=== PATIENT | female | born 1980 | race Caucasian/White ===

== ENCOUNTER 2020-10-27 10:54 | Outpatient (CLI) | payer OTHER, SELFPAY ==
--- NOTE | ~2020-10-27 | US_ITS ---
EXAMINATION: US thyroid DATE: 10/27/2020 11:12 INDICATION: Malignant neoplasm of thyroid gland. TECHNIQUE: Multiple ultrasound images of the thyroid were obtained. COMPARISON: None. FINDINGS: There are changes of thyroidectomy. There is no abnormal tissue in the thyroidectomy bed. IMPRESSION: 1. Thyroidectomy. No abnormal tissue in the thyroidectomy bed. Reviewed, dictated and finalized at location B. [employer]GER
== END 2020-10-27 10:55 | disposition home or self-care (01) ==
LOC: ANHIMG 10:58
PROVIDERS: PCP Physician Assistant; Visit Provider Internal Medicine Endocrinology, Diabetes & Metabolism
DX: C73 Malignant neoplasm of thyroid gland (principal)
CPT/HCPCS: 76536

== ENCOUNTER 2020-11-08 01:53 | Outpatient (CLI) | payer OTHER, SELFPAY ==
[2020-11-08 18:58] LABS: SARS-CoV-2 RNA PCR Negative
== END 2020-11-08 01:54 | disposition home or self-care (01) ==
LOC: ANHCOVIDDT 01:53
PROVIDERS: PCP Physician Assistant; Visit Provider Plastic Surgery
DX: Z01.818 Encounter for other preprocedural examination (principal); Z20.828 Contact with and (suspected) exposure to other viral communicable diseases
CPT/HCPCS: 87635; C9803; U0003

== ENCOUNTER 2020-11-12 00:51 | Day surgery (SDC) | payer OTHER, SELFPAY ==
[2020-11-06 11:12] VITALS: BMI 29.9
--- NOTE | 2020-11-11 14:48 | WPDANESEPPF ---
Anes - Initial Pre Proc Eval Procedure: Operation Date: 11/12/20 08:30 Proposed Procedures p Excision Of Left Dorsal Wrist Ganglion Cyst - Les Multani MD Date/Time: 11/11/20 14:48 Surgeon: Les Multani MD Pre Op Diagnosis: Left Dorsal Wrist Ganglion Cyst Patient Data Age: 39 Gender: F Height: 1.65 m Weight: 81.81 kg Allergies Allergy/AdvReac Type Severity Reaction Status Date / Time diphenhydramine AdvReac Severe Tachycardia Verified 11/12/20 06:46 Home Medications Medication Instructions Recorded Confirmed Type cholecalciferol (vitamin D3) 1,250 50,000 unit PO WEEKLY #12 cap 09/03/20 11/12/20 Rx mcg (50,000 unit) capsule levothyroxine [Synthroid] 150 mcg PO EVERY OTHER DAY 11/06/20 11/12/20 History levothyroxine [Synthroid] 175 mcg PO EVERY OTHER DAY 11/06/20 11/12/20 History Adult Multivitamin Gummies 1 cap PO DAILY 11/12/20 11/12/20 History omega-3 fatty acids [Fish Oil] 1 cap PO DAILY 11/12/20 11/12/20 History Patient hx anesthesia problems: none Family hx anesthesia problems: none PMFSH Past Medical History Medical History Arthritis History of plasmapheresis Thyroid cancer Thyroid disease Surgical History Surgical History H/O thyroidectomy Status post PICC central line placement Family History Family History (Updated 10/15/20 @ 10:55 by Constantin Loo) Father Family history of obesity Patient's father is in good health Family history of kidney stones Malignant neoplasm of prostate Mother Family history of mental disorder Patient's mother is in good health Grandparent Family history of malignant neoplasm of breast Sibling Family history of malignant neoplasm of thyroid Other Anxiety Hearing loss Social History Social History Smoking packs per day: 0.5 Smoking cigarettes per day: 10.0 Years smoked: 3 Smoking pack-years: 1.50 Smoking status: Former smoker Tobacco type: cigarettes Second hand tobacco smoke exposure: No Additional smoking assessment comments: STATES QUIT 2004 Alcohol intake: current Drinks per week: 2 Substance use: never Substance use type: does not use Living arrangements: with family Spiritual care concerns: No Anes - Eval Final PreProcedure Day of Procedure 11/11/20 14:48 Patient weight: obese Heart: regular rate and rhythm Lungs: clear to auscultation and normal air movement Airway: Mallampati scale class II Neurological: alert and oriented Last oral intake: >/= 8 hours ASA classification: II Emergent: no Anesthetic plan: proceed Anesthesia type and monitoring: general GIVS and standard monitoring Informed Consent: The patient's anesthetic plan and its attendant risks and benefits were discussed with the patient/family/POA. Questions were solicited and answers provided to the satisfaction of the patient/family/POA.
[2020-11-12 06:29] VITALS: BP 132/68; PULSE 88; RESP 16; TEMP 36.7; O2SAT 100
[2020-11-12] MEDS: LACTATED RINGERS 1,000 ML 30 ML IV CONT (06:57)
--- NOTE | 2020-11-12 07:07 | WPDHPUPDATE1 ---
History and Physical Update Update Date/Time: 11/12/20 07:07 History and Physical has been reviewed, including an updated exam of the patient. There are NO changes in the patient's condition. Risks, benefits, and alternatives have been discussed and questions answered. Patient agrees to proceed with procedure.
[2020-11-12] MEDS: LIDO 1%/EPINEPHRINE 1:100,000 20 ML VIAL 5 ML INFILTRATE (08:50)
[2020-11-12] MEDS: BACITRACIN OINTMENT 15 GM TUBE 1 APPLIC TOPICAL (08:51)
[2020-11-12 09:11] VITALS: BP 112/51; PULSE 96; RESP 14; O2SAT 100
--- NOTE | 2020-11-12 09:16 | PM.PROC ---
Procedure Note - Detailed Date of procedure: 11/12/20 Pre-op diagnosis: Left Dorsal Wrist Ganglion Cyst Post-op diagnosis: same Procedure performed: Excision left dorsal wrist ganglion cyst. Anesthesia: MAC Surgeon: Les Multani MD Estimated blood loss (mL): 0 Tourniquet time (min): 7 Drains: No Packing: No Pathology: none sent Complications: No immediate complications Condition: stable Disposition: same day
--- NOTE | 2020-11-12 09:20 | PM.PROC ---
Procedure Note - Detailed Date of procedure: 11/12/20 Pre-op diagnosis: Left Dorsal Wrist Ganglion Cyst Post-op diagnosis: same Procedure performed: Excision of left dorsal wrist ganglion cyst Description of procedure: The site on the left dorsal wrist was marked in preop. The patient was taken to the operating room where she was placed supine on the operating table. A time-out was held and confirmed. She was given IV sedation. The left extremity was prepped and draped in usual fashion. The site was remarked over the ganglion cyst which was visible. This was locally infiltrated with 1% lidocaine with epinephrine. The tourniquet was inflated to 250 mmHg. The incision was made transversely as marked. Blunt dissection through the subcutaneous fat revealed the ganglion cyst. This was relatively superficial. It was dissected around its base with and the base was tracked down to the origin at the wrist capsule. The trunk did not appear to have a lumen today. It was amputated. The local capsular tissue was easily approximated with a single suture of 4-0 Monocryl. The subcutaneous tissue was closed with 4-0 Monocryl and the dermis was closed with 4-0 Monocryl. The tourniquet was released in the usual bandage applied. She is being discharged home with instructions in wound care and follow-up. A prescription for hydrocodone 5/325 was printed for her discharge Surgeon: Les Multani MD
[2020-11-12 09:40] VITALS: BP 108/72; PULSE 80; RESP 14
== END 2020-11-12 10:00 | disposition home or self-care (01) ==
PROVIDERS: PCP Physician Assistant; Visit Provider Plastic Surgery
PROC: (CPT 25111; principal; 2020-11-12 08:30)
DX: M67.432 Ganglion, left wrist (principal); E89.0 Postprocedural hypothyroidism; M19.90 Unspecified osteoarthritis, unspecified site; Z85.850 Personal history of malignant neoplasm of thyroid; Z90.89 Acquired absence of other organs; Z87.891 Personal history of nicotine dependence; E66.8 Other obesity; Z68.31 Body mass index [BMI] 31.0-31.9, adult
CPT/HCPCS: 25111; A9270; J2250; J2704; J3010; J7120

== ENCOUNTER 2021-01-20 16:57 | Outpatient (CLI) | payer OTHER, SELFPAY ==
--- NOTE | ~2021-01-20 | MM_ITS ---
EXAMINATION: MM screening marva BI w greta HISTORY: Screening TECHNIQUE: Craniocaudal and mediolateral oblique 3-D tomosynthesis images were obtained and synthetic 2-D images were generated. CAD analysis was submitted and interpreted. COMPARISON: No prior mammogram is available for comparison at this institution. BREAST PARENCHYMAL COMPOSITION: Breast composed of scattered areas of fibroglandular density. FINDINGS: There are asymmetries of the right breast centered in the upper outer quadrant. There are n o suspicious masses, calcifications or architectural distortion in the left breast. IMPRESSION: 1. Right breast asymmetries centered in the upper outer quadrant. 2. Comparison to previous outside mammograms recommended. BI-RADS Category 0: Incomplete: Needs additional imaging evaluation. Reviewed, dictated and finalized at location A. [employer]PER[employer]
== END 2021-01-20 16:58 | disposition home or self-care (01) ==
LOC: ANHIMG 16:59
PROVIDERS: PCP Physician Assistant; Visit Provider Physician Assistant
DX: Z12.31 Encounter for screening mammogram for malignant neoplasm of breast (principal); R92.8 Other abnormal and inconclusive findings on diagnostic imaging of breast
CPT/HCPCS: 77063; 77067

== ENCOUNTER 2021-03-06 10:58 | Outpatient (CLI) | payer OTHER, SELFPAY ==
--- NOTE | ~2021-03-06 | MMUS_ITS ---
EXAMINATION: MM diagnostic mammo unilat RT, US breast RT limited HISTORY: Follow-up right breast asymmetry TECHNIQUE: Additional 3-D tomosynthesis images of the right breast were performed and synthetic 2-D i mages were generated. CAD analysis was submitted and interpreted. High resolution Limited right breas t ultrasound was performed. COMPARISON: 01/20/2021 BREAST PARENCHYMAL COMPOSITION: The breasts are heterogenously dense, which may obscure small masses. FINDINGS: MAMMOGRAPHIC FINDINGS: There are no suspicious masses, calcifications or architectural distortion in the right breast to sug gest malignancy. ULTRASOUND: Limited right breast ultrasound: Normal heterogeneous echotexture without focal solid or cystic mass. IMPRESSION: 1. No mammographic or sonographic evidence for malignancy in the right breast. 2. Routine yearly screening mammogram and regular clinical breast examination are recommended. BI-RADS Category 1: Negative Reviewed, dictated and finalized at location A. IMPRESSION: 1. No mammographic or sonographic evidence for malignancy in the right breast. 2. Routine yearly screening mammogram and regular clinical breast examination a re recommended. BI-RADS Category 1: Negative
== END 2021-03-06 10:59 | disposition home or self-care (01) ==
LOC: ANHIMG 10:58
PROVIDERS: PCP Physician Assistant; Visit Provider Physician Assistant
DX: R92.8 Other abnormal and inconclusive findings on diagnostic imaging of breast (principal)
CPT/HCPCS: 76642; 77065

== ENCOUNTER 2021-03-09 10:04 | Outpatient (CLI) | payer OTHER, SELFPAY | END 2021-03-09 10:05 | disposition home or self-care (01) | LOC: ANHCOVIDVC 10:04 | PROVIDERS: PCP Physician Assistant | DX: Z23 Encounter for immunization (principal) | CPT/HCPCS: 0001A; 91300 ==

== ENCOUNTER 2021-03-30 09:55 | Outpatient (CLI) | payer OTHER, SELFPAY | END 2021-03-30 09:56 | disposition home or self-care (01) | LOC: ANHCOVIDVC 09:55 | PROVIDERS: PCP Physician Assistant | DX: Z23 Encounter for immunization (principal) | CPT/HCPCS: 0002A; 91300 ==

== ENCOUNTER → 2021-08-13 08:42 | Outpatient (CLI) | payer OTHER, SELFPAY ==
[2021-08-13 17:06] LABS: SARS-CoV-2 RNA PCR Negative
== END ==
PROVIDERS: PCP Physician Assistant; Visit Provider Physician Assistant
DX: R68.89 Other general symptoms and signs (principal); Z20.822 Contact with and (suspected) exposure to COVID-19
CPT/HCPCS: C9803; U0003; U0005

== ENCOUNTER 2022-02-09 08:28 | Outpatient (CLI) | payer OTHER, SELFPAY ==
--- NOTE | ~2022-02-09 | MM_ITS ---
EXAMINATION: MM screening marva BI w greta HISTORY: Screening mammogram TECHNIQUE: Craniocaudal and mediolateral oblique 3-D tomosynthesis images were obtained and synthetic 2-D images were generated. CAD analysis was submitted and interpreted. COMPARISON: 03/06/2021 diagnostic right mammogram and limited right breast ultrasound 01/20/2021 bilateral screening mammogram BREAST PARENCHYMAL COMPOSITION: The breasts are heterogeneously dense, which may obscure small masses . FINDINGS: Right breast: There is focal asymmetry in the upper outer quadrant of the right breast. Shanti gnostic right mammogram is recommended, with ultrasound if required. Left breast: There is no evidence of suspicious mass, calcification, or architectural distortion to s uggest malignancy.. There has been no suspicious interval change. IMPRESSION: 1. Mild asymmetry, upper outer right breast 2. Diagnostic right mammogram is recommended, with ultrasound if required BI-RADS Category 0: Incomplete: Needs additional imaging evaluation. Reviewed, dictated and finalized at location A.
== END 2022-02-09 08:29 | disposition home or self-care (01) ==
LOC: ANHIMG 08:30
PROVIDERS: PCP Physician Assistant; Visit Provider Physician Assistant
DX: Z12.31 Encounter for screening mammogram for malignant neoplasm of breast (principal); R92.8 Other abnormal and inconclusive findings on diagnostic imaging of breast
CPT/HCPCS: 77063; 77067

== ENCOUNTER 2022-02-18 13:15 | Outpatient (CLI) | payer OTHER, SELFPAY ==
--- NOTE | ~2022-02-18 | MM_ITS ---
EXAMINATION: MM diagnostic marva RT w greta HISTORY: Right breast focal asymmetry on screening mammogram TECHNIQUE: Additional 3-D tomosynthesis images of the right breast were performed and synthetic 2-D i mages were generated. CAD analysis was submitted and interpreted. COMPARISON: 02/09/2022, 03/06/2021, 01/20/2021 FINDINGS: There is a return to baseline fibroglandular appearance with spot compression of the right breast in the area questioned on screening mammogram. IMPRESSION: 1. No mammographic evidence of malignancy. 2. Recommend routine screening mammography in one year. BI-RADS Category 1: Negative Reviewed, dictated and finalized at location A.
== END 2022-02-18 13:16 | disposition home or self-care (01) ==
PROVIDERS: PCP Physician Assistant; Visit Provider Physician Assistant
DX: R92.8 Other abnormal and inconclusive findings on diagnostic imaging of breast (principal)
CPT/HCPCS: 77061; 77065; G0279

== ENCOUNTER 2022-05-03 10:41 | Outpatient (CLI) | payer OTHER, SELFPAY ==
--- NOTE | ~2022-05-03 | US_ITS ---
EXAMINATION: US pelvic complete DATE: 05/03/2022 11:23 INDICATION: ENLARGED UTERUS . Heavy menses. TECHNIQUE: Multiple transabdominal and endovaginal sonographic images of the pelvis were obtained. COMPARISON: None. FINDINGS: Uterus: 12.8 x 9.5 x 7.3 cm. Uterine fibroids at the fundus measuring 5.3 and 6.4 cm. Endometrial com plex measures 0.4 cm. Right Ovary: 2.8 x 2.2 x 3.1 cm. Vascular flow is present. Left Ovary: 1.6 x 2.0 x 1.7 cm. Vascular flow is present. There is no free fluid in the pelvis. IMPRESSION: 1. Fibroid uterus. Reviewed, dictated and finalized at location K. IMPRESSION: 1. Fibroid uterus.
== END 2022-05-03 10:42 | disposition home or self-care (01) ==
PROVIDERS: PCP Physician Assistant; Visit Provider Obstetrics & Gynecology Gynecology
DX: N85.2 Hypertrophy of uterus (principal); D25.9 Leiomyoma of uterus, unspecified
CPT/HCPCS: 76856

== ENCOUNTER 2022-07-19 01:44 | Day surgery (SDC) | payer OTHER, SELFPAY ==
--- NOTE | 2022-07-12 16:06 | SUR.PREOP ---
Report to the Outpatient Waiting Room, entrance under the green pavilion located off [facility], at time 0600 on date 07/19/22. OR Time: 0730. - You and your visitor will be asked to self-screen and do not enter if you have any COVID symptoms. - Only one visitor and NO children visitors are allowed at this time. - The patient visitor is requested to leave or wait in car when not with patient due to restrictions. - A mask is required within the hospital. Patients may have clear liquids (water, carbonated beverages, clear teas, apple juice) until 3 hours prior to surgery with a maximum of 20 ounces. - No food from midnight until time of surgery - Infants may have breast milk until 4 hours before surgery, infant formula 6 hours prior to surgery. - Children will be allowed to drink immediately following surgery. If applicable, please bring a bottle or sippy cup to assist with drinking. Juice, water, soda, and popsicles are readily available. For infants on formula, please bring formula the day of surgery. Pacifiers are allowed. Take the following medications with a SIP of water the morning of surgery: SYNTHROID Please no make-up, nail mexican, hairspray, perfume, deodorant, or body powder the day of surgery. No jewelry (including any body piercings) or valuables the day of surgery, leave them at home. Please take a shower or bath the night before, or the morning of, surgery with an antibacterial soap. Wear comfortable, loose fitting clothing. Children are encouraged to wear pajamas. - Jewelry must be removed prior to entering the operating room. Rings and piercings that are not removed may be cut off. - The hospital will not accept responsibility for valuables. - Please leave all valuables, including medications, at home the day of surgery. If you are going home after surgery, a licensed transportation driver must drive you home. - NO public transportation without another adult. - We recommend that an adult stay with you for 24 hours following discharge. - We also recommend that you do not drive, make important decision, drink alcoholic beverages, or take any drugs that were not prescribed by your health care provider for at least 24 hours after your discharge time. For Pediatric surgeries, we recommend two adults accompany the child home (only one inside the building at this time). Follow any additional instructions given to you from your surgeon. If you or anyone in your household have experienced Covid symptoms in the past week, please notify your surgeon or the nurse liaison at the phone number below for possible testing. Telephone instructions given to JEANINE RM and asked if any additional questions and then verbalized understanding. Patient advised to call surgeon office or pre surgery nurse liaison [phone] if any additional questions.
[2022-07-12 16:14] VITALS: BMI 27.5
[2022-07-19 06:30] VITALS: BP 116/73; PULSE 85; RESP 16; TEMP 37.1; O2SAT 100
[2022-07-19] MEDS: LACTATED RINGERS 1,000 ML 30 ML IV CONT (06:30)
[2022-07-19] MEDS: ACETAMINOPHEN 500 MG TABLET 1000 MG PO (06:35)
--- NOTE | 2022-07-19 06:47 | WPDANESEPPF ---
Anes - Initial Pre Proc Eval Procedure: Operation Date: 07/19/22 07:30 Proposed Procedures p Hysteroscopy with Dilation and Curettage with Possible Myosure - Caridad Mcnair MD Date/Time: 07/19/22 06:47 Surgeon: Caridad Mcnair MD Pre Op Diagnosis: Menorrhagia, Fibroids Patient Data Age: 41 Gender: F Height: 1.68 m Weight: 77.3 kg Allergies Allergy/AdvReac Type Severity Reaction Status Date / Time diphenhydramine Allergy Severe Tachycardia Verified 07/12/22 15:58 Home Medications Medication Instructions Recorded Confirmed Type cholecalciferol (vitamin D3) 1,250 50,000 unit PO WEEKLY #12 caps 09/03/20 07/12/22 Rx mcg (50,000 unit) capsule fluticasone propionate 50 2 spray intranasal DAILY #16 grams 02/16/21 07/12/22 Rx mcg/actuation nasal spray,suspension (Flonase Allergy Relief) Synthroid 150 mcg tablet 150 mcg PO EVERY OTHER DAY #90 tabs 03/30/22 07/12/22 Rx (levothyroxine) Synthroid 175 mcg tablet 175 mcg PO EVERY OTHER DAY #90 tabs 03/30/22 07/12/22 Rx (levothyroxine) Patient hx anesthesia problems: none Family hx anesthesia problems: none Results Review: All pre-operative results and documents have been reviewed as part of the pre-operative evaluation. [facility] Past Medical History Medical History Arthritis History of plasmapheresis Thyroid cancer Thyroid disease Surgical History Surgical History H/O thyroidectomy Status post PICC central line placement Family History Family History Father Family history of obesity Patient's father is in good health Family history of kidney stones Malignant neoplasm of prostate Mother Family history of mental disorder Patient's mother is in good health Grandparent Family history of malignant neoplasm of breast Sibling Family history of malignant neoplasm of thyroid Other Anxiety Hearing loss Social History Social History Smoking packs per day: 0.5 Smoking cigarettes per day: 10.0 Years smoked: 3 Smoking pack-years: 1.50 Smoking status: Former smoker Tobacco type: cigarettes Second hand tobacco smoke exposure: No Additional smoking assessment comments: STATES QUIT 2004 Alcohol intake: current Drinks per week: 2 Substance use: never Substance use type: does not use Living arrangements: with family Spiritual care concerns: No Anes - Eval Final PreProcedure Day of Procedure 07/19/22 06:47 Patient weight: overweight Heart: regular rate and rhythm Lungs: clear to auscultation Airway: Mallampati scale class II Neurological: alert and oriented Last oral intake: >/= 8 hours ASA classification: II Emergent: no Anesthetic plan: proceed Anesthesia type and monitoring: general GIVS and standard monitoring Results Review: All pre-operative results and documents have been reviewed as part of the pre-operative evaluation. Informed Consent: The patient's anesthetic plan and its attendant risks and benefits were discussed with the patient/family/POA. Questions were solicited and answers provided to the satisfaction of the patient/family/POA.
--- NOTE | 2022-07-19 07:13 | WPDHPUPDATE1 ---
History and Physical Update Update Date/Time: 07/19/22 07:13 History and Physical has been reviewed, including an updated exam of the patient. There are NO changes in the patient's condition. Risks, benefits, and alternatives have been discussed and questions answered. Patient agrees to proceed with procedure.
--- NOTE | 2022-07-19 07:13 | PM.HPGS ---
History of Present Illness History of Present Illness Consent: Risks, benefits, and alternatives have been discussed and questions answered. Patient agrees to proceed with procedure. Chief complaint: Menorrhagia, Fibroids Narrative: Ashley Timmons is a 41 year old female with heavy but regular cycles. Pelvic ultrasound shows multiple fibroids with an enlarged uterus. It was recommended to proceed with D&C hysteroscopy and possible MyoSure. Risks of infection, bleeding perforation, and fluid imbalance were reviewed. Patient voiced understanding and agrees to proceed. Review of Systems Review of Systems: not repeated day of surgery; patient states no changes in status PMFSH Past Medical History Medical History (Updated 07/19/22 @ 07:18 by Caridad Mcnair MD) Arthritis History of plasmapheresis Hypothyroidism (normal spontaneous vaginal delivery) X3 Thyroid cancer Surgical History Surgical History (Updated 07/19/22 @ 07:17 by Caridad Mcnair MD) H/O thyroidectomy 2006 Status post PICC central line placement 2004 Family History Family History Father Family history of obesity Patient's father is in good health Family history of kidney stones Malignant neoplasm of prostate Mother Family history of mental disorder Patient's mother is in good health Grandparent Family history of malignant neoplasm of breast Sibling Family history of malignant neoplasm of thyroid Other Anxiety Hearing loss Social History Social History Smoking packs per day: 0.5 Smoking cigarettes per day: 10.0 Years smoked: 3 Smoking pack-years: 1.50 Smoking status: Former smoker Tobacco type: cigarettes Second hand tobacco smoke exposure: No Additional smoking assessment comments: STATES QUIT 2004 Alcohol intake: current Drinks per week: 2 Substance use: never Substance use type: does not use Living arrangements: with family Spiritual care concerns: No Meds Home Medications and Allergies Home Medications Medication Instructions Recorded Confirmed Type cholecalciferol (vitamin D3) 1,250 50,000 unit PO WEEKLY #12 caps 09/03/20 07/12/22 Rx mcg (50,000 unit) capsule fluticasone propionate 50 2 spray intranasal DAILY #16 grams 02/16/21 07/12/22 Rx mcg/actuation nasal spray,suspension (Flonase Allergy Relief) Synthroid 150 mcg tablet 150 mcg PO EVERY OTHER DAY #90 tabs 03/30/22 07/12/22 Rx (levothyroxine) Synthroid 175 mcg tablet 175 mcg PO EVERY OTHER DAY #90 tabs 03/30/22 07/12/22 Rx (levothyroxine) Allergies Allergy/AdvReac Type Severity Reaction Status Date / Time diphenhydramine Allergy Severe Tachycardia Verified 07/12/22 15:58 Exam Const: General: healthy appearing and alert Orientation/consciousness: patient oriented x3 GI: GI Palp: Yes Soft to palpation, No Tenderness to palpation present (GI) and No Palpable mass present : External Female Exam: normal external appearance Speculum Exam - Vagina: normal appearance of the vagina and normal vaginal discharge Speculum Exam - Cervix: normal appearance of the cervix Bimanual exam- vagina & uterus: consistency normal and enlarged (12 weeks and globular) Bimanual Exam- Adnexa, other: normal adnexae and No adnexal tenderness Neuro: General: patient oriented x3 Assessment and Plan Assessment and plan (1) Menorrhagia: Code(s): N92.0 - Excessive and frequent menstruation with regular cycle Status: Acute Assessment and Plan: Plan to proceed with D&C hysteroscopy and possible MyoSure (2) Fibroid uterus: Code(s): D25.9 - Leiomyoma of uterus, unspecified Status: Acute
[2022-07-19] MEDS: LIDOCAINE HCL 1% PF 30 ML VIAL INFILTRATE (07:47)
[2022-07-19] MEDS: FERRIC SUBSULFATE 8 ML SOLUTION WITH APPLICATOR TOPICAL (07:50)
--- NOTE | 2022-07-19 07:52 | W.PM.PROC2 ---
Procedure Note - Detailed Date of Procedure 07/19/22 Pre-op Diagnosis Menorrhagia, Fibroids Post-op Diagnosis Same Procedure Performed D&C hysteroscopy with MyoSure Surgeon Caridad Mcnair MD Anesthesia MAC and Local Findings Uterus sounds to 9cm. Grossly appearing normal cavity except for 1 small polyp on the right lateral sidewall. Description of Procedure The patient was taken to the operating room and placed under anesthesia in the dorsal lithotomy position. She was prepped and draped in the usual sterile fashion. The bivalve speculum was placed in the vagina and the cervix grasped on the anterior lip with a tenaculum. The cervix is injected in each quadrant with 1% lidocaine. The uterus is sounded to 9cm and the cervix serially dilated to an 8 Hegar. The diagnostic hysteroscope was placed with the above-stated findings. The MyoSure device is opened and placed and under direct visualization the polyp was excised in its entirety. The device is removed and the sharp curette used to curette the endometrium until a good uterine cry was noted in all areas. All instruments were then removed. The tenaculum site required silver nitrate and Monsel's for hemostasis. Sponge, needle, and instrument counts are correct per the OR staff. The patient is awakened from anesthesia and taken to recovery in stable condition. Estimated Blood Loss 5 Drains No Packing No Pathology Yes (Endometrial shavings and curettings) Complications No immediate complications Condition Stable Disposition PACU
[2022-07-19 07:55] VITALS: BP 95/76; PULSE 98; RESP 15; O2SAT 96
[2022-07-19 08:15] VITALS: BP 97/61; PULSE 92; RESP 20
[2022-07-19 08:45] VITALS: BP 102/68; PULSE 76; RESP 20
[2022-07-19 09:05] VITALS: BP 107/68; PULSE 70; RESP 20
== END 2022-07-19 09:10 | disposition home or self-care (01) ==
PROVIDERS: PCP Physician Assistant; Visit Provider Obstetrics & Gynecology Gynecology
PROC: 0U5B8ZZ Destruction of Endometrium, Via Natural or Artificial Opening Endoscopic (ICD-10-PCS; CPT 58563; principal; 2022-07-19 07:30)
DX: N92.0 Excessive and frequent menstruation with regular cycle (principal); N84.0 Polyp of corpus uteri; M19.90 Unspecified osteoarthritis, unspecified site; E03.9 Hypothyroidism, unspecified; Z85.850 Personal history of malignant neoplasm of thyroid; Z87.891 Personal history of nicotine dependence
CPT/HCPCS: 58558; 88305; A9270; J2250; J2704; J3010; J7120

== ENCOUNTER 2022-09-09 11:23 | Outpatient (CLI) | payer OTHER, SELFPAY ==
[2022-09-09 11:53] LABS: Hematocrit 38.5 % (37.0-47.0); Hemoglobin 12.8 g/dL (12.0-15.0)
== END 2022-09-09 11:24 | disposition home or self-care (01) ==
LOC: ANHSURGERY 11:28
PROVIDERS: Anesthesiology; PCP Physician Assistant; Visit Provider Obstetrics & Gynecology Gynecology
DX: D64.9 Anemia, unspecified (principal); Z01.818 Encounter for other preprocedural examination
CPT/HCPCS: 36415; 85014; 85018

== ENCOUNTER 2022-09-13 02:52 | Day surgery (SDC) | payer OTHER, SELFPAY ==
[2022-09-06 16:08] VITALS: BMI 28.6
--- NOTE | 2022-09-06 16:23 | PC.NURSE ---
Report to the Outpatient Waiting Room, entrance under the green pavilion located off [facility], at time __9:00AM on date __09/13/22 . Planned Procedure Time: __11:00AM . Time changes happen often and if your time is changed the preop area will call you the afternoon before. - You and your visitor will be asked to self-screen and do not enter if you have any COVID symptoms. - We encourage only one visitor and NO visitors under age 16 are allowed at this time. Your visitor will receive communication by the phone number that is given day of service. - The patient visitor is requested to social distance or may leave the building when not with patient due to restrictions. - A mask is required within the hospital. Patients may have clear liquids (water, carbonated beverages, clear teas, apple juice) until 3 hours prior to surgery with a maximum of 20 ounces. - No food from midnight until time of surgery Take the following medications with a SIP of water the morning of surgery: SYNTHROID Medications to discontinue per physician HOLD ALL VITAMINS/SUPPLEMENTS 3 DAYS PRE-OP Date to take last dose____10/11/22 Please no make-up, nail japanese, hairspray, perfume, deodorant, or body powder the day of surgery. No jewelry (including any body piercings) or valuables the day of surgery, leave them at home. Please take a shower or bath the night before, or the morning of, surgery with an antibacterial soap. Wear comfortable, loose fitting clothing. Children are encouraged to wear pajamas. - Jewelry must be removed prior to entering the operating room. Rings and piercings that are not removed may be cut off. - The hospital will not accept responsibility for valuables. - Please leave all valuables, including medications, at home the day of surgery. If you are going home after surgery, a licensed restaurant delivery driver must drive you home. - NO public transportation without another adult. - We recommend that an adult stay with you for 24 hours following discharge. - We also recommend that you do not drive, make important decision, drink alcoholic beverages, or take any drugs that were not prescribed by your health care provider for at least 24 hours after your discharge time. Follow any additional instructions given to you from your surgeon. If you or anyone in your household have experienced Covid symptoms in the past week, please notify your surgeon or the nurse liaison at the phone number below for possible testing. Telephone instructions given to __PATIENT and asked if any additional questions and then verbalized understanding. Patient advised to call surgeon office or pre surgery nurse liaison [phone] if any additional questions.
[2022-09-13 07:03] VITALS: BP 115/69; PULSE 83; RESP 18; TEMP 36.2; O2SAT 99
[2022-09-13] MEDS: ACETAMINOPHEN 500 MG TABLET 1000 MG PO (07:35)
[2022-09-13] MEDS: LACTATED RINGERS 1,000 ML 30 ML IV CONT (07:40)
--- NOTE | 2022-09-13 07:47 | WPDHPUPDATE1 ---
History and Physical Update Update Date/Time: 09/13/22 07:47 History and Physical has been reviewed, including an updated exam of the patient. There are NO changes in the patient's condition. Risks, benefits, and alternatives have been discussed and questions answered. Patient agrees to proceed with procedure.
--- NOTE | 2022-09-13 07:47 | PM.HPGS ---
History of Present Illness History of Present Illness Consent: Risks, benefits, and alternatives have been discussed and questions answered. Patient agrees to proceed with procedure. Chief complaint: menorrhaghia Narrative: Ashley Timmons is a 41 year old female with heavy cycles. Patient underwent D&C hysteroscopy in July with benign findings and a benign polyp. By ultrasound the patient has 2 fibroids. By hysteroscopy they are not submucosal. Patient observed cycles for an additional cycle after hysteroscopy and it remained heavy. She has elected to proceed with Deepa endometrial ablation. Risks of infection, bleeding, and perforation are reviewed. Success and postoperative expectation were reviewed. The patient is aware that an ablation is not control. The patient's has had a vasectomy. The patient voices understanding and agrees to proceed. Review of Systems Review of Systems: not repeated day of surgery; patient states no changes in status PMFSH Past Medical History Medical History (Updated 07/21/22 @ 13:17 by Ute Cuevas MD) Arthritis History of plasmapheresis Hypothyroidism (normal spontaneous vaginal delivery) X3 Thyroid cancer Surgical History Surgical History (Updated 09/13/22 @ 07:49 by Caridad Mcnair MD) H/O thyroidectomy 2006 History of hysteroscopy Status post PICC central line placement 2004 Family History Family History Father Family history of obesity Patient's father is in good health Family history of kidney stones Malignant neoplasm of prostate Mother Family history of mental disorder Patient's mother is in good health Grandparent Family history of malignant neoplasm of breast Sibling Family history of malignant neoplasm of thyroid Other Anxiety Hearing loss Social History Social History Smoking packs per day: 0.25 Smoking cigarettes per day: 5.0 Years smoked: 5 Smoking pack-years: 1.25 Smoking status: Former smoker Tobacco type: cigarettes Second hand tobacco smoke exposure: No Smoking end date: 05/21/05 Additional smoking assessment comments: STATES QUIT 2004 Alcohol intake: current Drinks per week: 2 Substance use: never Substance use type: does not use Living arrangements: with family Additional living arrangements comments: SPOUSE AND CHILD Spiritual care concerns: No Meds Home Medications and Allergies Home Medications Medication Instructions Recorded Confirmed Type Synthroid 150 mcg tablet 150 mcg PO EVERY OTHER DAY #90 tabs 07/21/22 09/13/22 Rx (levothyroxine) Synthroid 175 mcg tablet 175 mcg PO EVERY OTHER DAY #90 tabs 07/21/22 09/13/22 Rx (levothyroxine) ferrous sulfate 142 mg (45 mg 142 mg PO DAILY 09/06/22 09/13/22 History iron) tablet,extended release (Slow Fe) multivitamin 1 tablet PO DAILY 09/06/22 09/13/22 History Allergies Allergy/AdvReac Type Severity Reaction Status Date / Time diphenhydramine AdvReac Severe Tachycardia Verified 09/13/22 07:48 Exam Const: General: healthy appearing and alert Orientation/consciousness: patient oriented x3 Resp: Effort & Inspection: normal respiratory effort GI: GI Palp: Yes Soft to palpation, No Tenderness to palpation present (GI) and No Palpable mass present : External Female Exam: normal external appearance Speculum Exam - Vagina: normal appearance of the vagina and normal vaginal discharge Speculum Exam - Cervix: normal appearance of the cervix Bimanual exam- vagina & uterus: uterine size normal ( uterus palpates as 12cm but sounds to 9cm) and consistency normal Bimanual Exam- Adnexa, other: normal adnexae and No adnexal tenderness Neuro: General: patient oriented x3 Assessment and Plan Assessment and plan (1) Menorrhagia: Code(s): N92.0 - Excessive and frequ
--- NOTE | 2022-09-13 08:15 | WPDANESEPPF ---
Anes - Initial Pre Proc Eval Procedure: Operation Date: 09/13/22 09:00 Proposed Procedures p Hysteroscopy, Deepa Endometrial Ablation - Caridad Mcnair MD Date/Time: 09/13/22 08:15 Surgeon: Caridad Mcnair MD Pre Op Diagnosis: menorrhaghia Patient Data Age: 41 Gender: F Height: 1.65 m Weight: 79.5 kg Last Vital Signs Temp 36.2 C L 09/13/22 07:03 Pulse 83 09/13/22 07:03 Resp 18 09/13/22 07:03 BP 115/69 09/13/22 07:03 Pulse Ox 99 09/13/22 07:03 O2 Del Method Room Air 09/13/22 07:03 Allergies Allergy/AdvReac Type Severity Reaction Status Date / Time diphenhydramine AdvReac Severe Tachycardia Verified 09/13/22 07:48 Home Medications Medication Instructions Recorded Confirmed Type Synthroid 150 mcg tablet 150 mcg PO EVERY OTHER DAY #90 tabs 07/21/22 09/13/22 Rx (levothyroxine) Synthroid 175 mcg tablet 175 mcg PO EVERY OTHER DAY #90 tabs 07/21/22 09/13/22 Rx (levothyroxine) ferrous sulfate 142 mg (45 mg 142 mg PO DAILY 09/06/22 09/13/22 History iron) tablet,extended release (Slow Fe) multivitamin 1 tablet PO DAILY 09/06/22 09/13/22 History Patient hx anesthesia problems: none Family hx anesthesia problems: none Results Review: All pre-operative results and documents have been reviewed as part of the pre-operative evaluation. [facility] Past Medical History Medical History (Updated 07/21/22 @ 13:17 by Ute Cuevas MD) Arthritis History of plasmapheresis Hypothyroidism (normal spontaneous vaginal delivery) X3 Thyroid cancer Surgical History Surgical History (Updated 09/13/22 @ 07:49 by Caridad Mcnair MD) H/O thyroidectomy 2006 History of hysteroscopy Status post PICC central line placement 2004 Family History Family History Father Family history of obesity Patient's father is in good health Family history of kidney stones Malignant neoplasm of prostate Mother Family history of mental disorder Patient's mother is in good health Grandparent Family history of malignant neoplasm of breast Sibling Family history of malignant neoplasm of thyroid Other Anxiety Hearing loss Social History Social History (Reviewed 07/21/22 @ 12:58 by Gerald Horton [facility]) Smoking packs per day: 0.25 Smoking cigarettes per day: 5.0 Years smoked: 5 Smoking pack-years: 1.25 Smoking status: Former smoker Tobacco type: cigarettes Second hand tobacco smoke exposure: No Smoking end date: 05/21/05 Additional smoking assessment comments: STATES QUIT 2004 Alcohol intake: current Drinks per week: 2 Substance use: never Substance use type: does not use Living arrangements: with family Additional living arrangements comments: SPOUSE AND CHILD Spiritual care concerns: No Anes - Eval Final PreProcedure Day of Procedure 09/13/22 08:15 Patient weight: overweight Heart: regular rate and rhythm Lungs: clear to auscultation Airway: Mallampati scale class II Neurological: alert and oriented Last oral intake: >/= 8 hours ASA classification: II Emergent: no Anesthetic plan: proceed Anesthesia type and monitoring: general GIVS and standard monitoring Results Review: All pre-operative results and documents have been reviewed as part of the pre-operative evaluation. Informed Consent: The patient's anesthetic plan and its attendant risks and benefits were discussed with the patient/family/POA. Questions were solicited and answers provided to the satisfaction of the patient/family/POA.
[2022-09-13] MEDS: KETOROLAC 15 MG/ML VIAL (*BKC) IV PUSH (08:39)
[2022-09-13] MEDS: LIDOCAINE HCL 1% LOCAL INJ 20 ML VIAL 10 ML INFILTRATE (08:53)
--- NOTE | 2022-09-13 09:03 | W.PM.PROC2 ---
Procedure Note - Detailed Date of Procedure 09/13/22 Pre-op Diagnosis menorrhaghia Post-op Diagnosis Same Procedure Performed Hysteroscopy with Deepa endometrial ablation Surgeon Caridad Mcnair MD Anesthesia MAC and Local Findings uterus sounds to 8 1/2 cm and appears grossly normal Description of Procedure The patient is taken to operating room and placed under anesthesia in the dorsal lithotomy position. She was prepped and draped in the usual sterile fashion. The bivalve speculum was placed in the vagina and the cervix is grasped on the anterior lip with a tenaculum. The cervix is injected in each quadrant with 1% lidocaine. The uterus is sounded to 8.5cm. The cervix is serially dilated to an 8 Hegar. The diagnostic hysteroscope was placed with the above-stated findings per the hysteroscope was removed and the Deepa device is opened and placed set at 5cm in length. Cavity assessment passed on the 1st attempt and the treatment cycle lasted the to minutes. The ablation device is removed and the hysteroscope replaced with good ablation effect noted. The instruments are removed. The sponge, needle, and instrument counts are correct per the OR staff. The patient is awakened from anesthesia and taken to recovery room stable condition. Estimated Blood Loss 5 Drains No Packing No Pathology None sent Complications No immediate complications Condition Stable Disposition PACU
[2022-09-13 09:05] VITALS: BP 106/67; PULSE 78; RESP 12; O2SAT 98
[2022-09-13 09:35] VITALS: BP 102/69; PULSE 62; RESP 12
== END 2022-09-13 10:05 | disposition home or self-care (01) ==
PROVIDERS: PCP Physician Assistant; Visit Provider Obstetrics & Gynecology Gynecology
PROC: 0U5B8ZZ Destruction of Endometrium, Via Natural or Artificial Opening Endoscopic (ICD-10-PCS; CPT 58563; principal; 2022-09-13 09:00)
DX: N92.0 Excessive and frequent menstruation with regular cycle (principal); E89.0 Postprocedural hypothyroidism; Z85.850 Personal history of malignant neoplasm of thyroid; Z87.891 Personal history of nicotine dependence
CPT/HCPCS: 58563; A9270; J1100; J1885; J2250; J2704; J3010; J7120

== ENCOUNTER 2022-12-21 12:46 | Outpatient (CLI) | payer OTHER, SELFPAY ==
--- NOTE | ~2022-12-21 | MMUS_ITS ---
EXAMINATION: MM diagnostic marva BI w greta, US breast BI complete HISTORY: Bilateral breast tenderness at C. Family history of breast cancer. TECHNIQUE: Additional 3-D tomosynthesis images of the breasts were performed and synthetic 2-D images were generated. CAD analysis was submitted and interpreted. High resolution bilateral complete breas t ultrasound was performed. COMPARISON: Comparison to multiple prior studies sequentially, with oldest reviewed study dated 12/2020. BREAST PARENCHYMAL COMPOSITION: Breast composed of scattered areas of fibroglandular density FINDINGS: MAMMOGRAPHIC FINDINGS: The breasts are stable. No suspicious masses, calcifications or architectural distortion in either br east to suggest malignancy. ULTRASOUND: Complete bilateral US of all 4 quadrants of the breasts and retroareolar region was reviewed. Normal heterogeneous echotexture without focal solid or cystic mass. IMPRESSION: 1. No evidence for malignancy in either breast. 2. Routine yearly screening mammogram and regular clinical breast examination are recommended. BI-RADS Category 1: Negative Reviewed, dictated and finalized at location A. [facility] IMPRESSION: 1. No evidence for malignancy in either breast. 2. Routine yearly screening mammogram and regular clinical breast examination a re recommended. BI-RADS Category 1: Negative
== END 2022-12-21 12:47 | disposition home or self-care (01) ==
PROVIDERS: PCP Physician Assistant; Visit Provider Obstetrics & Gynecology Gynecology
DX: N64.4 Mastodynia (principal); Z80.3 Family history of malignant neoplasm of breast
CPT/HCPCS: 76641; 77062; 77066; G0279

== ENCOUNTER 2024-02-08 09:48 | Outpatient (CLI) | payer OTHER, SELFPAY ==
[2024-02-08 10:19] LABS: Hematocrit 41.4 % (37.0-47.0); Hemoglobin 13.9 g/dL (12.0-15.0)
== END 2024-02-08 09:49 | disposition home or self-care (01) ==
LOC: ANHSURGERY 09:52
PROVIDERS: PCP Physician Assistant; Visit Provider Obstetrics & Gynecology Gynecology
DX: D25.9 Leiomyoma of uterus, unspecified (principal); Z01.818 Encounter for other preprocedural examination
CPT/HCPCS: 36415; 85014; 85018; 86850; 86880; 86900; 86901; 86902

== ENCOUNTER 2024-02-13 09:58 | Inpatient (IN) | payer OTHER, SELFPAY ==
[2024-02-06 10:34] VITALS: BMI 30.7
--- NOTE | 2024-02-06 10:39 | SUR.PREOP ---
Report to the Outpatient Waiting Room, entrance under the green pavilion located off [facility], at time 0600 on date 02/13/24. Planned Procedure Time 0730. Time changes happen often and if your time is changed the preop area will call you the afternoon before. - You and your visitor will be asked to self-screen and do not enter if you have any COVID symptoms. - A mask is optional within the hospital at this time. Patients may have clear liquids (water, carbonated beverages, clear teas, apple juice) until 3 hours prior to surgery with a maximum of 20 ounces. - No food from midnight until time of surgery before 0430 am - Infants may have breast milk until 4 hours before surgery, infant formula 6 hours prior to surgery. - Children will be allowed to drink immediately following surgery. If applicable, please bring a bottle or sippy cup to assist with drinking. Juice, water, soda, and popsicles are readily available. For infants on formula, please bring formula the day of surgery. Pacifiers are allowed. Take the following medications with a SIP of water the morning of surgery: ___synthroid DO NOT STOP ANY OF YOUR OTHER PRESCRIPTION MEDICATIONS PRIOR TO SURGERY ?EXCEPT THE FOLLOWING Medications to discontinue per physician ____vit D3 for 3 days prior Date to take last dose Please no make-up, nail macedonian, hairspray, perfume, deodorant, or body powder the day of surgery. No jewelry (including any body piercings) or valuables the day of surgery, leave them at home. Please take a shower or bath the night before, or the morning of, surgery with an antibacterial soap. Wear comfortable, loose fitting clothing. Children are encouraged to wear pajamas. - Jewelry must be removed prior to entering the operating room. Rings and piercings that are not removed may be cut off. - The hospital will not accept responsibility for valuables. - Please leave all valuables, including medications, at home the day of surgery. If you are going home after surgery, a licensed service car driver must drive you home. - NO public transportation without another adult if you receive anesthesia. - We recommend that an adult stay with you for 24 hours following discharge. - We also recommend that you do not drive, make important decision, drink alcoholic beverages, or take any drugs that were not prescribed by your health care provider for at least 24 hours after your discharge time. For Pediatric surgeries, we recommend two adults accompany the child home. Follow any additional instructions given to you from your surgeon. If you or anyone in your household have experienced Covid symptoms in the past week, please notify your surgeon or the nurse liaison at the phone number below for possible testing. Telephone instructions given to __patient__and asked if any additional questions and then verbalized understanding. Patient advised to call surgeon office or pre surgery nurse liaison [phone] if any additional questions.
[2024-02-13] VITALS (10 sets, daily range): BP systolic 94–143; BP diastolic 52–82; PULSE 62–87; RESP 12–20; TEMP 36.3–38.1; O2SAT 96–100
[2024-02-13] MEDS: LACTATED RINGERS 1,000 ML 30 ML IV CONT ×2 (06:30→09:00)
[2024-02-13] MEDS: ACETAMINOPHEN 500 MG TABLET 1000 MG PO (06:35)
[2024-02-13] MEDS: KETOROLAC 15 MG/ML VIAL (*BKC) IV PUSH (06:35)
--- NOTE | 2024-02-13 07:02 | WPDANESEPPF ---
Anes - Initial Pre Proc Eval Procedure: Operation Date: 02/13/24 07:30 Proposed Procedures p Total Abdominal Hysterectomy with Bilateral Salpingectomy - Caridad Mcnair MD Date/Time: 02/13/24 07:02 Surgeon: Caridad Mcnair MD Pre Op Diagnosis: fibroid uterus Patient Data Age: 43 Gender: F Height: 1.65 m Weight: 84 kg Last Vital Signs Temp 36.8 C 02/13/24 06:09 Pulse 78 02/13/24 06:09 Resp 16 02/13/24 06:09 BP 143/82 H 02/13/24 06:09 Pulse Ox 100 02/13/24 06:09 O2 Del Method Room Air 02/13/24 06:09 Allergies Allergy/AdvReac Type Severity Reaction Status Date / Time diphenhydramine AdvReac Severe Tachycardia Verified 02/13/24 06:43 Home Medications Medication Instructions Recorded Confirmed Type Synthroid 150 mcg tablet 150 mcg PO EVERY OTHER DAY #45 tabs 07/21/23 02/13/24 Rx (levothyroxine) Synthroid 175 mcg tablet 175 mcg PO EVERY OTHER DAY #45 tabs 07/21/23 02/13/24 Rx (levothyroxine) fluticasone propionate 50 2 spray intranasal DAILY #16 grams 01/19/24 02/13/24 Rx mcg/actuation nasal spray,suspension (Flonase Allergy Relief) cholecalciferol (vitamin D3) 125 125 mcg PO DAILY 02/06/24 02/13/24 History mcg (5,000 unit) tablet (Vitamin D3) Laboratory Tests 02/08/24 10:08 Blood Type TNP Antibody Screen TNP Enhanced Crossmatch See Detail Patient hx anesthesia problems: none Family hx anesthesia problems: none Results Review: All pre-operative results and documents have been reviewed as part of the pre-operative evaluation. [facility] Past Medical History Medical History Arthritis History of plasmapheresis Hypothyroidism (normal spontaneous vaginal delivery) X3 Thyroid cancer Surgical History Surgical History H/O thyroidectomy 2006 History of hysteroscopy Status post PICC central line placement 2004 Family History Family History Father Family history of obesity Patient's father is in good health Family history of kidney stones Malignant neoplasm of prostate Mother Family history of mental disorder Patient's mother is in good health Grandparent Family history of malignant neoplasm of breast Sibling Family history of malignant neoplasm of thyroid Other Anxiety Hearing loss Social History Social History Smoking packs per day: 0.25 Smoking cigarettes per day: 5.0 Years smoked: 5 Smoking pack-years: 1.25 Smoking status: Never smoker Tobacco type: cigarettes Second hand tobacco smoke exposure: No Smoking end date: 05/21/05 Additional smoking assessment comments: STATES QUIT 2004 Alcohol intake: current Drinks per week: 5 Substance use: never Substance use type: does not use Lack of Transportation: No Lack of Food: Never True Current Housing: I Have Housing Concerned About Future Housing: No Difficulty Paying Gas/Electric Bills: No Difficulty Paying for Meds: No Currently Unemployed: No Education: High School Diploma/GED Difficulty w/ Childcare or Family Care: No Living arrangements: with family Additional living arrangements comments: SPOUSE AND CHILD Spiritual care concerns: No Anes - Eval Final PreProcedure Day of Procedure 02/13/24 07:02 Patient weight: obese Heart: regular rate and rhythm Lungs: clear to auscultation Airway: Mallampati scale class II Neurological: alert and oriented Last oral intake: >/= 8 hours ASA classification: II Emergent: no Anesthetic plan: proceed Anesthesia type and monitoring: general ETT and standard monitoring Results Review: All pre-operative results and documents have been reviewed as part of the pre-operative evaluation. Informed Consent: The
--- NOTE | 2024-02-13 07:21 | WPDHPUPDATE1 ---
History and Physical Update Update Date/Time: 02/13/24 07:21 History and Physical has been reviewed, including an updated exam of the patient. There are NO changes in the patient's condition. Risks, benefits, and alternatives have been discussed and questions answered. Patient agrees to proceed with procedure.
--- NOTE | 2024-02-13 07:21 | PM.IMHP ---
H&P: HPI History of Present Illness Date/Time: 02/13/24 07:21 Chief Complaint: Symptomatic fibroid uterus Narrative: The patient is a 38 year 3 para 3 admitted for total abdominal hysterectomy with bilateral salpingectomy. The patient has a known fibroid uterus. Patient initially with abnormal bleeding. Patient is status post endometrial ablation which has been successful for her bleeding complaints. Patient now reports increased pressure and pelvic cramping regardless of cycle timing. She wishes to proceed with total abdominal hysterectomy due to her pain. It was also recommended to proceed with elective salpingectomy and patient agrees. Risks of infection, bleeding, injury to internal organs ( bowel, bladder, ureters, ovaries), DVT, and general anesthesia reviewed. Patient voices understanding and agrees to proceed. Review of Systems Review of Systems: not repeated day of surgery; patient states no changes in status PMFSH Past Medical History Medical History Arthritis History of plasmapheresis Hypothyroidism (normal spontaneous vaginal delivery) X3 Thyroid cancer Surgical History Surgical History (Updated 02/13/24 @ 07:24 by Caridad Mcnair MD) H/O thyroidectomy 2006 History of hysteroscopy S/P endometrial ablation Family History Family History Father Family history of obesity Patient's father is in good health Family history of kidney stones Malignant neoplasm of prostate Mother Family history of mental disorder Patient's mother is in good health Grandparent Family history of malignant neoplasm of breast Sibling Family history of malignant neoplasm of thyroid Other Anxiety Hearing loss Social History Social History Smoking packs per day: 0.25 Smoking cigarettes per day: 5.0 Years smoked: 5 Smoking pack-years: 1.25 Smoking status: Never smoker Tobacco type: cigarettes Second hand tobacco smoke exposure: No Smoking end date: 05/21/05 Additional smoking assessment comments: STATES QUIT 2004 Alcohol intake: current Drinks per week: 5 Substance use: never Substance use type: does not use Lack of Transportation: No Lack of Food: Never True Current Housing: I Have Housing Concerned About Future Housing: No Difficulty Paying Gas/Electric Bills: No Difficulty Paying for Meds: No Currently Unemployed: No Education: High School Diploma/GED Difficulty w/ Childcare or Family Care: No Living arrangements: with family Additional living arrangements comments: SPOUSE AND CHILD Spiritual care concerns: No Meds Home Medications and Allergies Home Medications Medication Instructions Recorded Confirmed Type Synthroid 150 mcg tablet 150 mcg PO EVERY OTHER DAY #45 tabs 07/21/23 02/13/24 Rx (levothyroxine) Synthroid 175 mcg tablet 175 mcg PO EVERY OTHER DAY #45 tabs 07/21/23 02/13/24 Rx (levothyroxine) fluticasone propionate 50 2 spray intranasal DAILY #16 grams 01/19/24 02/13/24 Rx mcg/actuation nasal spray,suspension (Flonase Allergy Relief) cholecalciferol (vitamin D3) 125 125 mcg PO DAILY 02/06/24 02/13/24 History mcg (5,000 unit) tablet (Vitamin D3) Allergies Allergy/AdvReac Type Severity Reaction Status Date / Time diphenhydramine AdvReac Severe Tachycardia Verified 02/13/24 06:43 Vital Signs Vital Signs - 24 hr 02/13/24 06:09 Temperature 98.3 F Pulse Rate 78 Respiratory Rate 16 Blood Pressure 143/82 H Pulse Oximetry 100 Oxygen Delivery Room Air Exam Const: General: healthy appearing and alert Orientation/consciousness: patient oriented x3 Resp: Effort & Inspection: normal respiratory effort GI: GI Palp: Yes Soft to palpation, No Tenderness to palpation present (GI) and No Palpable ma
[2024-02-13] MEDS: ceFAZolin 2 GM/D5W 50 ML 2 GM/50 ML BAG IVPB (07:30)
--- NOTE | 2024-02-13 08:59 | P.OP_ITS ---
Procedure Note - Detailed Date of Procedure 02/13/24 Pre-op Diagnosis fibroid uterus Post-op Diagnosis Same Procedure Performed Total abdominal hysterectomy with bilateral salpingectomy Surgeon Caridad Mcnair MD Anesthesia General Findings enlarged fibroid uterus Description of Procedure The patient was taken to the operating room and placed under anesthesia in the dorsal supine position. She was prepped and draped in the usual sterile fashion. Pfannenstiel skin incision was made with a scalpel and carried down to the underlying layer of fascia which was nicked in the midline and extended laterally. The [place] were used to tent the fascia which was then dissected off using sharp and blunt dissection. The rectus muscles are in the midline and the peritoneum tented and entered with Metzenbaum scissors. The incision was extended with blunt traction. The bowel was packed away using moist laparotomy sponges and the [place] is placed. The uterus was grasped on the cornu with large peans and the uterus is delivered through the incision. The round ligaments were doubly ligated with 0 Vicryl and transected. The anterior leaf of the broad ligament was incised meeting in the midline. The bladder was dissected off using a moist sponge stick. The utero-ovarian ligament is isolated by creating a window in the posterior leaf of the broad ligament. The tube was grasped with a Leslie and pulled to the medial side. The pedicle was doubly clamped with Z clamps, transected, and suture ligated with 0 Vicryl. The uterine vessels are skeletonized, clamped with Z clamps, transected, and suture ligated with 0 Vicryl. The cardinal and uterosacral ligaments are serially clamped, transected, and suture ligated with 0 Vicryl. The uterosacral ligament was tagged for future use. The scalpel was used to enter the vaginal cuff anteriorly. The specimen is amputated using [place]. The vaginal cuff was grasped with Allis clamps as the specimen was amputated. The distal cervix is left on the vaginal cuff. This is grasped with an Allis clamp and excised using [place] scissors. The vaginal cuff was then closed using 0 Vicryl in a running locked fashion. Each angle was tied to the ipsilateral uterosacral ligaments that were previously tagged. The pelvis is irrigated in all pedicles were noted to be hemostatic. The sponge and instruments are removed. The fascia was closed using 0 Vicryl in a running fashion. Subcutaneous tissues are irrigated and made hemostatic using Bovie cautery. Skin is closed using 4-0 Vicryl in a subcuticular fashion. Dermaflex was placed over the incision. The patient was awakened from anesthesia and taken to recovery in stable condition. She received Ancef prior to skin incision. The sponge, needle, and instrument counts are correct per the OR staff. Estimated Blood Loss 300 Drains Yes ( Santana catheter) Pathology Yes ( uterus and tubes) Complications No immediate complications Condition Stable Disposition PACU
--- NOTE | 2024-02-13 09:06 | PM.DS ---
DS: Admitting Diagnosis Discharge Date 02/15/24 Admitting Diagnosis symptomatic fibroid uterus DS: Discharge Diagnosis Discharge Diagnosis (1) Status post total abdominal hysterectomy: Code(s): Z90.710 - Acquired absence of both cervix and uterus Status: Acute DS: Summary Hospital Course Hospital Course: At the time of discharge, the patient was tolerating regular diet, voiding, and ambulating. Pain is under good control. Status at Discharge Functional status at discharge: independent ambulation Overall status at discharge: patient is progressing back to baseline Time Spent with Patient Time attestation: Total time spent providing and/or coordinating discharge services: DS: Data Data Completed and Pending Pending studies at discharge: Pending at discharge 02/13/24 08:35 Surgical [PTH] Routine Labs on day of discharge: Labs from last 24 hours 02/08/24 10:08 Blood Type TNP Antibody Screen TNP Enhanced Crossmatch See Detail Discharge Plan Discharge Attending physician on discharge: Caridad Mcnair Consulting providers: Zuleima Linn; Cheyanne Ortiz; Tamir Mark Discharging Clinician: Cheyanne Ortiz Anticipated Discharge Date/Time: 02/15/24 07:56 Patient Disposition: Home, Self-Care Activity: may drive after 2 weeks, as tolerated and pelvic rest Diet: as tolerated and regular Patient Instructions: Hysterectomy (DC) Stand Alone Forms: General Discharge Instructions Follow-up/Referrals: Caridad Mcnair MD [Physician] - (1 week incision check) Discharge Medications: New hydrocodone-acetaminophen 5-325 mg Tablet 1 tablet PO Q3H PRN (Reason: Pain Rated 5 Or Less) Qty: 15 0RF ibuprofen 600 mg Tablet 600 mg PO Q6H PRN (Reason: Cramping) Qty: 30 0RF Continued levothyroxine [Synthroid] 150 mcg tablet 150 mcg PO EVERY OTHER DAY Qty: 45 3RF levothyroxine [Synthroid] 175 mcg tablet 175 mcg PO EVERY OTHER DAY Qty: 45 3RF cholecalciferol (vitamin D3) [Vitamin D3] 125 mcg (5,000 unit) Tablet 125 mcg PO DAILY fluticasone propionate [Flonase Allergy Relief] 50 mcg/actuation spray,suspension 2 spray intranasal DAILY Qty: 16 2RF Rx Instructions: administer into each nostril Date of admission: 02/13/24 09:58 Primary Care Provider: Matthew Benavidez Admitting Provider: Caridad Mcnair Attending physician on admission: Caridad Mcnair Condition: Stable
[2024-02-13] MEDS: HYDROmorphone HCL INJ (*CRX) 1 MG/ML SYR 0.5 MG IV PUSH ×4 (09:11→09:48)
--- NOTE | 2024-02-13 10:05 | PC.NURSE ---
This patient, Ashley Timmons, was received from PACU on 02/13/24 at 1005. Patient/family oriented to unit policies and routines
[2024-02-13] MEDS: DEXTROSE 5%/LACTATED RINGERS 1,000 ML 125 ML IV CONT ×2 (10:32→18:11)
[2024-02-13] MEDS: KETOROLAC 30 MG/ML VIAL (*BKC) IV PUSH ×2 (10:40→17:28)
[2024-02-13] MEDS: HYDROcodone/acetaminophen (*CRX) 5-325 MG TABLET 1 TAB PO ×2 (15:07→20:45)
[2024-02-13] MEDS: SIMETHICONE 80 MG TAB.CHEW PO (15:07)
[2024-02-14] VITALS (8 sets, daily range): BP systolic 122–131; BP diastolic 50–79; PULSE 82–85; RESP 16–20; TEMP 37.1–38.2; O2SAT 96–100
[2024-02-14] MEDS: IBUPROFEN 600 MG TABLET PO ×3 (01:03→20:04)
[2024-02-14] MEDS: HYDROcodone/acetaminophen (*CRX) 5-325 MG TABLET 1 TAB PO ×3 (01:27→20:04)
[2024-02-14 03:50] LABS: Basophils Percent Auto 0.3 % (0.2-1.2); Eosinophils Percent Auto 0.1 % (0-4.4); Hematocrit 34.9 % (37.0-47.0); Hemoglobin 11.4 g/dL (12.0-15.0); Immature Granulocyte Absolute 0.03 K/mm3 (0.00-0.031); Immature Granulocyte Percent A 0.4 % (0-0.5); Lymphocytes Absolute Auto 1.26 K/mm3 (0.9-3.2); Lymphocytes Percent Auto 16.6 % (18.3-44.2); Mean Corpuscular HGB Conc 32.7 g/dl (32-36); Mean Corpuscular Volume 91.8 fl (80-100); Mean Platelet Volume 10.4 fl (7.4-10.4); Monocytes Absolute Auto 0.6 K/mm3 (0.1-0.6); Monocytes Percent Auto 8.2 % (2.6-8.5); Neutrophils Absolute Auto 5.6 K/mm3 (1.3-6.7); Neutrophils Percent Auto 74.4 % (45.5-73.1); Platelet Count Result 236 k/mm3 (150-375); Red Cell Distribution Width 12.4 % (11.5-14.5); White Blood Count 7.6 K/mm3 (4.5-10.0)
[2024-02-14] MEDS: SIMETHICONE 80 MG TAB.CHEW PO ×3 (07:48→17:19)
[2024-02-14] MEDS: CHOLECALCIFEROL 1,000 UNITS TABLET 5000 UNITS PO (07:48)
[2024-02-14] MEDS: FLUTICASONE PROPIONATE 0.05% NA SPR 16 GM BTL (*BKC) 2 SPRAY NASAL (07:48)
--- NOTE | 2024-02-14 08:00 | PM.GYNPNOP ---
TURPENTINE FARMER - A/P Postoperative Procedures: Procedures Operation Date: 02/13/24 07:30 Actual Procedure Side Surgeon p Total Abdominal Hysterectomy with Bilateral Salpingectomy Bilateral Caridad Mcnair MD Postoperative day: 1 Postoperative status: doing well (Low grade temp likely atelectasis. Plan ambulation and incentive spirometry. Normal WBC. ) Postoperative plan: routine post-op care Time Spent With Patient Time: Total time spent is greater than 50% in coordination of care (as documented) at patient's floor/unit and/or counseling patient: Time with patient: less than 15 minutes TURPENTINE FARMER- PN:Subj Post-Op Subjective Date/time seen: 02/14/24 08:00 Subjective: patient has no complaints, pain is well controlled and patient is tolerating oral intake Exam Narrative: inc c/d/i abdomen soft, nt, nd Const: General: comfortable and no acute distress TURPENTINE FARMER - PN: Obj Data Vital Signs Vital Signs: Vital Signs - 24 hr 02/13/24 09:00 02/13/24 09:15 02/13/24 09:30 Temperature 97.4 F L Pulse Rate 80 62 64 Respiratory Rate 18 12 12 Blood Pressure 118/66 120/75 113/73 Pulse Oximetry 100 100 99 Oxygen Delivery Simple Face Mask Simple Face Mask Room Air Oxygen Flow Rate 8 8 02/13/24 09:45 02/13/24 09:55 02/13/24 10:50 Temperature 98.0 F 98.6 F Pulse Rate 71 78 87 Respiratory Rate 12 16 18 Blood Pressure 115/72 111/69 126/77 Pulse Oximetry 98 97 100 Oxygen Delivery Room Air Room Air Oxygen Flow Rate 02/13/24 15:14 02/13/24 19:34 02/13/24 21:58 Temperature 99.8 F H 99.6 F 100.6 F H Pulse Rate 71 77 77 Respiratory Rate 18 18 20 Blood Pressure 94/52 L 124/67 117/62 Pulse Oximetry 97 98 96 Oxygen Delivery Oxygen Flow Rate 02/14/24 03:30 02/14/24 07:53 Temperature 98.9 F 100.8 F H Pulse Rate 85 Respiratory Rate 20 Blood Pressure 127/50 L Pulse Oximetry 99 Oxygen Delivery Oxygen Flow Rate Intake/Output Intake/Output: Intake & Output 02/11/24 02/12/24 02/13/24 02/14/24 23:59 23:59 23:59 23:59 Intake Total 1850 Output Total 1650 210 Balance 200 -210 Meds/Results Medications: Active Medications Generic Name Dose Route Start Last Admin Trade Name Freq PRN Reason Stop Dose Admin Hydrocodone Bitart/Acetaminophen 1 tab 02/13/24 09:58 Hydrocodone/Acetaminophen (*Crx) 10-325 Mg Tablet PO Q3H PRN Pain Rated 6 or Greater Hydrocodone Bitart/Acetaminophen 1 tab 02/13/24 09:58 02/14/24 01:27 Hydrocodone/Acetaminophen (*Crx) 5-325 Mg Tablet PO 1 tab Q3H PRN Administration Pain Rated 5 or Less Fluticasone Propionate 2 spray 02/14/24 09:00 02/14/24 07:48 Fluticasone Propionate 0.05% Na Spr 16 Gm Btl (*Bkc) NASAL 2 spray DAILY JENNI Administration Dextrose/Lactated Ringer's 1,000 mls @ 125 mls/hr 02/13/24 09:58 02/14/24 03:33 Dextrose 5%/Lactated Ringers IV CONT Not Given .Q8H JENNI Fentanyl Citrate 600 mcg in 30 mls @ 0.5 mls/hr 02/13/24 09:58 Fentanyl 600 Mcg/Ns 30 Ml Lead Blender IV CONT PRN PRN SERGEANT OF CORRECTIONS Management Protocol 10 MCG/HR Ibuprofen 600 mg 02/13/24 09:58 02/14/24 07:53 Ibuprofen 600 Mg Tablet PO 600 mg Q6H PRN Administration Cramping Ketorolac Tromethamine 30 mg 02/13/24 09:58 02/13/24 17:28 Ketorolac 30 Mg/Ml Vial (*Bkc) IV PUSH 02/18/24 09:57 30 mg Q6H PRN Administration Pain Rated 4-6 Levothyroxine Sodium 25 mcg 02/15/24 06:30 Levothyroxine Sodium 25 Mcg Tablet PO Q48H JENNI Levothyroxine Sodium 150 mcg 02/14/24 04:00 02/14/24 04:04 Levothyroxine Sodium 150 Mcg Tablet PO Not Given DAILY@0630 JENNI Ondansetron HCl 4 mg 02/13/24 09:58 Ondansetron Inj 4 Mg/2 Ml Vial IV PUSH Q6H PRN Nausea Simethicone 80 mg 02/13/24 12:00 02/14/24 07:48 Simethicone 80 Mg Tab.Chew PO 80 mg TIDWM JENNI Administration Vitamin D 5,000 units 02/14/24 09:00 02/14/24 07:48 Cholecalciferol 1,000 Units Tablet PO 5,000 units LUPE
--- NOTE | 2024-02-14 15:41 | P.PNAN_ITS ---
Anes - Prog Note Post-Op Date/Time: 02/14/24 15:41 Cardiovascular status: normal Respiratory status: normal Airway patency: baseline Mental status: baseline Post-Op hydration status: normal Vital Signs: Last Vital Signs Temp 37.6 C H 02/14/24 13:26 Pulse 82 02/14/24 08:02 Resp 16 02/14/24 08:02 BP 122/79 02/14/24 08:02 Pulse Ox 96 02/14/24 08:02 O2 Del Method Room Air 02/14/24 08:02 O2 Flow Rate 8 02/13/24 09:15 Pain Score (VAS): 12/31 I/O: Intake & Output 02/13/24 02/14/24 02/14/24 23:59 07:59 15:59 Intake Total 900 150 Output Total 1500 210 Balance -600 -210 150 Laboratory Tests 02/14/24 03:15 02/14/24 03:15 WBC 7.6 RBC 3.80 L Hgb 11.4 L Hct 34.9 L MCV 91.8 MCH 30.0 MCHC 32.7 RDW 12.4 Plt Count 236 MPV 10.4 Immature Gran % (Auto) 0.4 Neut % (Auto) 74.4 H Lymph % (Auto) 16.6 L [place] % (Auto) 8.2 Eos % (Auto) 0.1 Baso % (Auto) 0.3 Lymph # (Auto) 1.26 [place] # (Auto) 0.6 Eos # (Auto) 0.0 Baso # (Auto) 0.0 Abs Immat Gran (auto) 0.03 Absolute Neuts (auto) 5.6 Absolute Nucleated RBC 0.000 Nucleated RBC % 0.0 Post-procedural complaints: none Patient Feedback: Patient satisfied with anesthetic care.
[2024-02-15 01:17] VITALS: TEMP 37.2
[2024-02-15] MEDS: HYDROcodone/acetaminophen (*CRX) 5-325 MG TABLET 1 TAB PO ×2 (01:17→08:31)
[2024-02-15 07:50] VITALS: BP 108/68; PULSE 80; RESP 16; TEMP 37.2; O2SAT 98
--- NOTE | 2024-02-15 07:54 | WPDPN ---
Progress Note: A&P Assessment and Plan (1) Status post total abdominal hysterectomy: Code(s): Z90.710 - Acquired absence of both cervix and uterus Status: Acute Plan DC home today. F/up in office for incison check in one week. Time Spent With Patient Time with patient: 15 - 25 minutes Subjective Date/time seen: 02/15/24 07:35 Interval history: Post op day [address] [facility]. Tolerating food and fluids. Passing flatus. Urinating without difficulty. Pain well controlled with po medication. Review of Systems Review of Systems: All systems reviewed & are unremarkable except as noted in HPI and below Exam Const: General: cooperative, no acute distress and awake Orientation/consciousness: patient oriented x3 Limitations: no limitations Resp: Effort & Inspection: normal respiratory effort and able to speak in complete sentences Auscultation: clear to auscultation bilaterally Cardio: Rate: regular rate Peripheral pulses: Peripheral pulses 2+ throughout GI: Inspection: normal to inspection Auscultation: normal bowel sounds : General: Yes bladder normal to palpation Skin: General skin exam: normal color Other: Incision C/D/I Neuro: General: patient oriented x3 Cognition (Neuro): normal cognition Speech: normal speech Extrem: General: normal to inspection Psych: Appearance: grossly normal Mental Status: mental status grossly normal Speech and movement: Normal speech and movement present Affect: normal affect Attitude: cooperative Thought process: Normal thought process present Objective Data Vital Signs Vital Signs: Vital Signs - 24 hr 02/14/24 08:02 02/14/24 08:02 02/14/24 09:42 Temperature 100.8 F H 99.6 F Pulse Rate 82 Respiratory Rate 16 Blood Pressure 122/79 Pulse Oximetry 96 Oxygen Delivery Room Air 02/14/24 08:53 02/14/24 13:26 02/14/24 18:13 Temperature 99.6 F 99.7 F H 98.8 F Pulse Rate Respiratory Rate Blood Pressure Pulse Oximetry Oxygen Delivery 02/14/24 19:07 02/15/24 01:17 Temperature 99.3 F 99.0 F Pulse Rate 83 Respiratory Rate 18 Blood Pressure 131/79 Pulse Oximetry 100 Oxygen Delivery Intake/Output Intake/Output: Intake & Output 02/12/24 02/13/24 02/14/24 02/15/24 23:59 23:59 23:59 23:59 Intake Total 1850 390 Output Total 1650 210 Balance 200 180 Meds/Results Medications: Active Medications Generic Name Dose Route Start Last Admin Trade Name Freq PRN Reason Stop Dose Admin Hydrocodone Bitart/Acetaminophen 1 tab 02/13/24 09:58 Hydrocodone/Acetaminophen (*Crx) 10-325 Mg Tablet PO Q3H PRN Pain Rated 6 or Greater Hydrocodone Bitart/Acetaminophen 1 tab 02/13/24 09:58 02/15/24 01:17 Hydrocodone/Acetaminophen (*Crx) 5-325 Mg Tablet PO 1 tab Q3H PRN Administration Pain Rated 5 or Less Fluticasone Propionate 2 spray 02/14/24 09:00 02/14/24 07:48 Fluticasone Propionate 0.05% Na Spr 16 Gm Btl (*Bkc) NASAL 2 spray DAILY JENNI Administration Fentanyl Citrate 600 mcg in 30 mls @ 0.5 mls/hr 02/13/24 09:58 Fentanyl 600 Mcg/Ns 30 Ml Glove Sewer IV CONT PRN PRN CORE COMPOSER FEEDER Management Protocol 10 MCG/HR Ibuprofen 600 mg 02/13/24 09:58 02/14/24 20:04 Ibuprofen 600 Mg Tablet PO 600 mg Q6H PRN Administration Cramping Ketorolac Tromethamine 30 mg 02/13/24 09:58 02/13/24 17:28 Ketorolac 30 Mg/Ml Vial (*Bkc) IV PUSH 02/18/24 09:57 30 mg Q6H PRN Administration Pain Rated 4-6 Levothyroxine Sodium 25 mcg 02/15/24 06:30 Levothyroxine Sodium 25 Mcg Tablet PO Q48H [facility] Levothyroxine Sodium 150 mcg 02/14/24 04:00 02/14/24 04:04 Levothyroxine Sodium 150 Mcg Tablet PO Not Given DAILY@0630 [facility] Ondansetron HCl 4 mg 02/13/24 09:58 Ondansetron Inj 4 Mg/2 Ml Vial IV PUSH Q6H PRN Nausea Simethicone 80 mg 02/13/24 12:00 02/14/24 17:19 Simethicone 80 Mg Tab.Chew PO 80 mg TIDWM [facility] Administrati
[2024-02-15] MEDS: CHOLECALCIFEROL 1,000 UNITS TABLET 5000 UNITS PO (07:56)
[2024-02-15] MEDS: IBUPROFEN 600 MG TABLET PO (07:56)
[2024-02-15] MEDS: SIMETHICONE 80 MG TAB.CHEW PO (07:57)
== END 2024-02-15 08:35 | disposition home or self-care (01) | DRG 743 ==
LOC: ANHOB2 10:01
PROVIDERS: Admitting Provider Obstetrics & Gynecology Gynecology; PCP Physician Assistant; Visit Provider Obstetrics & Gynecology Gynecology
PROC: 0UT94ZZ Resection of Uterus, Percutaneous Endoscopic Approach (ICD-10-PCS; principal; 2024-02-13 07:30)
DX: D25.9 Leiomyoma of uterus, unspecified (principal); E03.9 Hypothyroidism, unspecified; Z85.850 Personal history of malignant neoplasm of thyroid; Z90.89 Acquired absence of other organs
CPT/HCPCS: 36415; 85025; 86900; 86901; 86922; 88307; A9270; J0690; J1100; J1170; J1596; J1885; J2250; J2405; J2704; J2710; J3010; J7120; J7121; Q9968

== ENCOUNTER 2024-03-19 09:42 | Outpatient (CLI) | payer OTHER, SELFPAY ==
--- NOTE | ~2024-03-19 | MM_ITS ---
EXAMINATION: MM screening [facility] BI w greta HISTORY: Screening mammogram TECHNIQUE: Craniocaudal and mediolateral oblique 3-D tomosynthesis images were obtained and synthetic 2-D images were generated. CAD analysis was submitted and interpreted. COMPARISON: 12/21/2022 diagnostic bilateral mammogram and complete bilateral breast ultrasound examina tion, reported negative 02/18/2022 diagnostic right mammogram, reported negative 02/09/2022 bilateral screening mammogram BREAST PARENCHYMAL COMPOSITION: The breasts are heterogeneously dense, which may obscure small masses . FINDINGS: There is no evidence of suspicious mass, calcification, or architectural distortion to sugg est malignancy in either breast. There has been no suspicious interval change. IMPRESSION: 1. No mammographic evidence of malignancy. 2. Recommend routine screening mammography in one year. BI-RADS Category 1: Negative Reviewed, dictated and finalized at location A.
== END 2024-03-19 09:43 | disposition home or self-care (01) ==
LOC: ANHIMG 09:43
PROVIDERS: PCP Physician Assistant; Visit Provider Obstetrics & Gynecology Gynecology
DX: Z12.31 Encounter for screening mammogram for malignant neoplasm of breast (principal)
CPT/HCPCS: 77063; 77067

== ENCOUNTER 2024-11-07 08:33 | Outpatient (CLI) | payer OTHER, SELFPAY ==
--- NOTE | ~2024-11-07 | XR_ITS ---
EXAMINATION: XR hip RT min 2V DATE: 11/07/2024 08:58 INDICATION: Right hip pain TECHNIQUE: Anteroposterior view of the pelvis and anteroposterior and frog-leg lateral views of the r ight hip were obtained. COMPARISON: None. FINDINGS: Alignment is normal. No fracture or osteonecrosis. Right hip joint space appears relatively preserved . Mild osteoarthritis of the right sacroiliac joint and likely moderate lower lumbar facet osteoarthr itis. There are several phleboliths in the right hemipelvis. Soft tissues are otherwise unremarkable. IMPRESSION: 1. No acute osseous abnormality with normal right hip joint space. Reviewed, dictated and finalized at location A. [employer]
[2024-11-07 09:36] LABS: Basophils Percent Auto 0.5 % (0.2-1.2); Eosinophils Absolute Auto 0.1 K/mm3 (0-0.3); Eosinophils Percent Auto 2.2 % (0-4.4); Hematocrit 42.6 % (37.0-47.0); Hemoglobin 14.4 g/dL (12.0-15.0); Lymphocytes Absolute Auto 1.15 K/mm3 (0.9-3.2); Lymphocytes Percent Auto 28.3 % (18.3-44.2); Mean Corpuscular HGB Conc 33.8 g/dl (32-36); Mean Corpuscular Hemoglobin 30.3 pg (26-34); Mean Corpuscular Volume 89.5 fl (80-100); Mean Platelet Volume 10.1 fl (7.4-10.4); Monocytes Absolute Auto 0.3 K/mm3 (0.1-0.6); Monocytes Percent Auto 6.7 % (2.6-8.5); Neutrophils Absolute Auto 2.5 K/mm3 (1.3-6.7); Neutrophils Percent Auto 62.3 % (45.5-73.1); Platelet Count Result 273 k/mm3 (150-375); Red Blood Count 4.76 M/mm3 (4.2-5.4); Red Cell Distribution Width 12.4 % (11.5-14.5); White Blood Count 4.1 K/mm3 (4.5-10.0)
[2024-11-07 10:14] LABS: Alanine Aminotransferase 23 U/L (6-35); Albumin Level 4.3 g/dL (3.5-5.1); Alkaline Phosphatase 63 U/L (38-126); Anion Gap 1 mmol/L (4-12); Aspartate Amino Transferase 26 U/L (14-36); Bilirubin,Total 0.5 mg/dL (0.2-1.3); Blood Urea Nitrogen 8 mg/dL (7-17); Calcium 9.1 mg/dL (8.4-10.2); Carbon Dioxide 29 mmol/L (22-30); Chloride 108 mmol/L (98-107); Cholesterol 195 mg/dL (0-200); Estimated Glomerular Filt Rate > 60; Glucose 88 mg/dL (65-110); HDL Direct 46 mg/dL; Potassium 4.3 mmol/L (3.4-5.0); Sodium 138 mmol/L (137-145); Triglycerides 114 mg/dL (<150)
[2024-11-07 10:23] LABS: Vitamin D 25 Hydroxy 37.6 ng/mL
[2024-11-07 10:29] LABS: LDL Cholesterol Direct 108 mg/dL
== END 2024-11-07 08:34 | disposition home or self-care (01) ==
PROVIDERS: PCP Internal Medicine; Visit Provider Internal Medicine
DX: M25.551 Pain in right hip (principal); E55.9 Vitamin D deficiency, unspecified; Z00.00 Encounter for general adult medical examination without abnormal findings
CPT/HCPCS: 36415; 73502; 80053; 80061; 82306; 85025

== ENCOUNTER 2025-01-08 13:30 | Outpatient (RCR) | payer OTHER, SELFPAY ==
--- NOTE | 2024-12-13 12:44 | OPREHPOC ---
Outpatient Therapy Plan of Care This is a Multidisciplinary Plan of Care that may contain components documented by all disciplines (PT, OT, and ST.) PT Problem 1 PT Problem #1 Knowledge Deficit PT Goal 1 Goal / Goal Update [place] with HEP Target Visit 2 PT Goal 2 Goal / Goal Update Report no pain greater than 1/10 for 2 consecutive weeks Target Visit 4 PT Problem 2 PT Problem #2 Impaired Range of Motion PT Goal 1 Goal / Goal Update Demonstrate nor ROM asymmetry between left and right hip Target Visit 4 PT Goal 2 Goal / Goal Update Improve R hip extension ROM to 10+ degrees to reduce anterior hip impingement Target Visit 4 PT Problem 3 PT Problem #3 Impaired Strength PT Goal 1 Goal / Goal Update Improve jeremiah hip abduction strength to 4+/5 to improve lateral pelvic stability with ADL performance Target Visit 4
--- NOTE | 2024-12-13 12:44 | PTOPEVAL1 ---
Assessment and note entered by Young Santoro, PT Evaluation Information Assessment Status Evaluation ICD-10 Condition Codes (PT) Pain in right hip M25.551 Onset November 2023 Subjective Information Reports that she has been having pain in the right hip for about a year. Pain is always on her right side. She does a lot of walking and activity but is having most of her pain at night. She does a lot of movement in the night. Denies sciatic issues. She has some level of consistent back pain as well. 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 Patient has hip ROM imbalance which is likely contributing to lumbar stress causing posterior and lateral hip pain at this time. She will benefit from skilled therapy to address these deficits for pain relief and improved gross function. Plan of Care Interventions Electrical Stimulation,Gait Training,Manual Therapy,Neuro Re-education,Therapeutic Activities, Therapeutic Exercise PT Services Indicated Yes Treatment Frequency and 1x/week for 4 visits Duration These treatments will address the objective and functional deficits as defined above. The patient will be advanced safely and appropriately in order for the patient to progress towards his/her prior level of function. Additional exercises will be introduced and as well as a comprehensive home exercise program upon discharge, if needed, ?to ensure carryover of functional gains achieved in the clinic. This treatment plan has been reviewed and agreement upon by the patient.
--- NOTE | 2025-01-08 14:06 | PTOPDC ---
Assessment and note entered by Cinthia Maddox, PT Assessment Status Discharge ICD-10 Condition Codes (PT) Pain in right hip M25.551 Onset November 2023 Subjective Information have been walking on the treadmill 45 minutes to an hour and not having any pain in her hip; have not been running; Reported Pain Level Pain Score 0: Self Report Additional Pain Score Comments have not had any pain in hip since starting therapy. have a history of pain in both knees- stairs always hurt; no pain in back; Assessment PT Clinical Summary Ashley has received 3 PT sessions. Compared to the initial evaluation: no longer has any R hip pain; self assessment with LE functional scale rating from 21 to 10% limitation in activity level; increase strength and flexibility of R hip with symmetry of L hip. Education completed for HEP and progression of fitness activity. She continues to have bilateral knee pain, which has some limits to her activity. The goals were achieved. Discharge PT services. She is to continue with her fitness activity and HEP. Plan of Care PT Services Indicated No
== END 2025-01-08 15:20 | disposition home or self-care (01) ==
LOC: ANHPT 13:30
PROVIDERS: PCP Internal Medicine; Visit Provider Internal Medicine
DX: M25.551 Pain in right hip (principal)
CPT/HCPCS: 97110; 97161; 97530

== ENCOUNTER 2025-05-15 13:43 | Outpatient (CLI) | payer OTHER, SELFPAY ==
--- NOTE | ~2025-05-15 | MM_ITS ---
EXAMINATION: MM screening [facility] BI w greta HISTORY: Screening mammogram TECHNIQUE: Craniocaudal and mediolateral oblique 3-D tomosynthesis images were obtained and synthetic 2-D images were generated. CAD analysis was submitted and interpreted. COMPARISON: 03/19/2024, 12/21/2022, 02/09/2022 BREAST PARENCHYMAL COMPOSITION:Not Dense. There are scattered areas of fibroglandular density. FINDINGS: No suspicious mass, calcification, or architectural distortion are identified in either umair ast to suggest malignancy. There has been no suspicious interval change. IMPRESSION: No mammographic evidence of malignancy. Recommend routine screening mammography in one year. BI-RADS Category 1: Negative Reviewed, dictated and finalized at location .
== END 2025-05-15 13:44 | disposition home or self-care (01) ==
LOC: ANHIMG 13:46
PROVIDERS: PCP Internal Medicine; Visit Provider Obstetrics & Gynecology Gynecology
DX: Z12.31 Encounter for screening mammogram for malignant neoplasm of breast (principal)
CPT/HCPCS: 77063; 77067